=== PATIENT | male | born 2000 | race Caucasian/White ===

== ENCOUNTER 2024-03-27 19:10 | Emergency (ER) | payer SELFPAY ==
[2024-03-27] MEDS: Lidocaine 1% 10 ML MDV INJECT ONE (19:38)
[2024-03-27] MEDS: Diphtheria,Pertussis(Acell),Tetanus Vaccine 0.5 ML Syringe IM ONE (20:03)
== END 2024-03-27 20:12 | disposition home or self-care (01) ==
LOC: JD.ED 19:10
DX: S61.211A Laceration without foreign body of left index finger without damage to nail, initial encounter (principal); Z23 Encounter for immunization; W26.8XXA Contact with other sharp object(s), not elsewhere classified, initial encounter
CPT/HCPCS: 12001; 90471; 90715; 99282-25; 99283; J3490

== ENCOUNTER → 2024-04-07 | Emergency (ER) | payer SELFPAY | LOC: JD.ED 20:00 | DX: S61.211D Laceration without foreign body of left index finger without damage to nail, subsequent encounter (principal); X58.XXXD Exposure to other specified factors, subsequent encounter | CPT/HCPCS: 99281 ==

== ENCOUNTER 2024-04-08 20:10 | Emergency (ER) | payer SELFPAY | END 2024-04-08 20:27 | disposition home or self-care (01) | LOC: JD.ED 20:10 | DX: S61.211D Laceration without foreign body of left index finger without damage to nail, subsequent encounter (principal); X58.XXXD Exposure to other specified factors, subsequent encounter | CPT/HCPCS: 99281 ==

== ENCOUNTER 2024-06-21 17:51 | Emergency (ER) | payer SELFPAY ==
[2024-06-21] MEDS ORDERED: Sodium Chloride 0.9% 10 ML Syringe FLUSH PRN (18:00)
[2024-06-21 18:30] LABS: BASOPHILS ABSOLUTE AUTO 0.1 K/mm3 (0.0-0.2); BASOPHILS PERCENT AUTO 0.5 % (0.0-1.0); EOSINOPHILS ABSOLUTE AUTO 0.3 K/mm3 (0.0-0.4); EOSINOPHILS PERCENT AUTO 1.9 % (0.0-6.0); HEMATOCRIT 43.4 % (42.0-52.0); HEMOGLOBIN 14.4 gm/dl (14.0-18.0); IMMATURE GRAN ABSOLUTE AUTO 0.06 K/mm3 (0.00-0.05); IMMATURE GRAN PERCENT AUTO 0.4 % (0.0-0.4); LYMPHOCYTES ABSOLUTE AUTO 4.1 K/mm3 (1.0-4.8); LYMPHOCYTES PERCENT AUTO 25.6 % (24.0-44.0); MEAN CORPUSCULAR HEMOGLOBIN 28.5 pg (28.0-32.0); MEAN CORPUSCULAR HGB CONC 33.2 g/dl (32.0-36.0); MEAN CORPUSCULAR VOLUME 85.8 fl (83.0-99.0); MEAN PLATELET VOLUME 11.1 fl (9.4-12.4); MONOCYTES PERCENT AUTO 6.4 % (0.0-8.0); NEUTROPHILS ABSOLUTE AUTO 10.4 K/mm3 (1.8-7.7); NEUTROPHILS PERCENT AUTO 65.2 % (41.0-71.0); PLATELET COUNT,PLT 272 K/mm3 (150-400); RED BLOOD CELL COUNT 5.06 M/mm3 (4.52-5.90); WHITE BLOOD CELL COUNT,WBC 15.95 K/mm3 (3.9-11.3)
[2024-06-21] MEDS: Ketorolac 60 MG/2 ML SDV IM ONE (18:57)
[2024-06-21 19:00] LABS: A/G RATIO 1.1 (1-2); ALBUMIN 4.2 g/dl (3.4-5.0); ALKALINE PHOSPHATASE 71 U/L (46-116); ANION GAP 12.7 (5-15); ASPARTATE AMNIOTRANSFERASE,AST 12 U/L (15-37); BILIRUBIN TOTAL 0.3 mg/dL (0.2-1.0); BLOOD UREA NITROGEN,BUN 21 mg/dL (7-18); BUN/CREATININE RATIO 19.1 (14-18); CARBON DIOXIDE,CO2 26 mEq/L (21-32); CHLORIDE,CL 100 mEq/L (98-107); CREATININE 1.1 mg/dL (0.7-1.3); ESTIMATED GFR 96 mL/min (>60); GLUCOSE RANDOM 102 mg/dL (70-99); POTASSIUM,K 3.7 mEq/L (3.5-5.1); PROTEIN TOTAL,TP 7.9 g/dl (6.4-8.2); SODIUM,NA 135 mEq/L (136-145)
[2024-06-21 19:05] LABS: TROPONIN I HIGH SENSITIVITY < 4 pg/mL (<=76)
[2024-06-21 19:16] LABS: ALANINE AMINOTRANSFERASE,ALT 13 U/L (16-63)
== END 2024-06-21 20:45 | disposition home or self-care (01) ==
LOC: JD.ED 17:51
DX: R07.89 Other chest pain (principal); F17.210 Nicotine dependence, cigarettes, uncomplicated
CPT/HCPCS: 36415; 71046; 80053; 84484; 85025; 85379; 86140; 93005; 96372; 99285; J1885

== ENCOUNTER 2024-07-19 18:22 | Emergency (ER) | payer SELFPAY ==
[2024-07-19 19:53] LABS: APPEARANCE,URINE CLEAR (Clear); BILIRUBIN,URINE NEGATIVE (Negative); COLOR,URINE YELLOW (Yellow); GLUCOSE,URINE NEGATIVE (Negative); KETONES,URINE NEGATIVE (Negative); LEUKOCYTE ESTERASE,URINE NEGATIVE (Negative); NITRITE,URINE NEGATIVE (Negative); OCCULT BLOOD,URINE NEGATIVE (Negative); PROTEIN,URINE NEGATIVE (Negative); UROBILINOGEN,URINE 0.2 (0.2-1.0)
[2024-07-19 20:04] LABS: BACTERIA,URINE RARE /hpf (FEW); EPITHELIAL CELLS,URINE NOT SEEN /hpf (0-5); MUCUS,URINE NOT SEEN /hpf (FEW); RBC,URINE 0-5 /hpf (0-5); WBC,URINE 0-5 /hpf (0-5)
== END 2024-07-19 21:05 | disposition home or self-care (01) ==
LOC: JD.ED 18:22
DX: L21.9 Seborrheic dermatitis, unspecified (principal); L72.9 Follicular cyst of the skin and subcutaneous tissue, unspecified; Z79.2 Long term (current) use of antibiotics; Z79.899 Other long term (current) drug therapy
CPT/HCPCS: 81001; 99283